=== PATIENT | female | born 1965 | race American Indian/Alaskan Native ===

== ENCOUNTER 2020-05-04 18:10 | Emergency (ER) | payer OTHER ==
[~2020-05-04] VITALS: Ht 160 cm; Wt 83.9 kg
[~2020-05-04 18:10] MED LIST: AUGMENTIN 875-1 EACH PO; MOTRIN IB200 MG PO; OMEPRAZOLE20 MG PO; ZYRTEC10 MG PO
[2020-05-04] MEDS ORDERED: VENTOLIN HFA18 GM INH (18:22)
[2020-05-04] MEDS ORDERED: SUDAFED 12-HOU120 MG PO (18:22)
--- NOTE | 2020-05-06 23:15 | PATH ---
[facility] [address] [place], [place] [address] Signed ORDERING PHYSICIAN: Therese Medina MD PATIENT NAME: VERONIKA OWEN GENDER: F : 1965 Prior History: No cases found. SPECIMEN(S): No Source Given MOLECULAR PATHOLOGY RESULTS: SARS-CoV-2 Not Detected ADDITIONAL NOTES.: The [employer]usk Fusion SARS-CoV-2 Assay is a multiplex real-time PCR (RT-PCR) in vitro diagnostic test intended for the qualitative detection of RNA from SARS-CoV-2 from individuals who meet COVID-19 clinical and/or epidemiological criteria. In general, SARS-CoV-2 RNA can be detected during the acute phase of infection. Positive results indicate the presence of SARS-CoV-2 RNA. Clinical correlation with patient history and other diagnostic information is necessary to determine patient infection status. Positive results do not rule out bacterial infection or co-infection with other viruses. Negative results do not preclude SARS-CoV-2 infection and should not be used as the sole basis for patient management decisions. Negative results must be combined with other clinical observations, patient history, and epidemiological information. The Rusk Fusion SARS-CoV-2 Assay is not yet approved or cleared by the [place] FDA. When there are no FDA-approved or cleared tests available, and other criteria are met, FDA can make tests available under an emergency access mechanism called an Emergency Use Authorization (EUA). The EUA for this test is supported by the Lay Out Technician of Health and Human Service's (HHS's) declaration that circumstances exist to justify the emergency use of in vitro diagnostics for the detection and/or diagnosis of the virus that causes COVID-19. This EUA will remain in effect for the duration of the COVID-19 declaration justifying emergency of IVDs, unless it is terminated or revoked by FDA, after which the test may no longer be used. The Rusk Fusion SARS-CoV-2 Assay is for use only under EUA PATIENT NAME: VERONIKA OWEN PATHOLOGY DATE OF : 65 REPORT #: [id number] PHYSICIAN: VERNELL PATHOLOGY [facility] REPORT IS CONFIDENTIAL AND NOT TO BE RELEASED WITHOUT AUTHORIZATION [facility] [address] [facility] [place] [address] Signed in laboratories certified under the Clinical Laboratory Improvement Amendments of 1988 (CLIA) to perform high complexity tests. [facility] is certified under CLIA to perform high complexity clinical laboratory testing. Crystal Ordonez PERFORMING LABORATORY.: Molecular testing was performed by [facility] [place] [address] (Electric Mule Operator: Keith Olivarez D.O.; CLIA#: [id number]) Diagnostician: System Interface Pathologist Electronically Signed 05/06/2020 Copies: ~ PATIENT NAME: VERONIKA OWEN PATHOLOGY DATE OF : [birth year] REPORT #: [id number] PHYSICIAN: VERNELL CUNHA PCP: [facility] REPORT IS CONFIDENTIAL AND NOT TO BE RELEASED WITHOUT AUTHORIZATION
== END 2020-05-04 19:34 | disposition home or self-care (01) ==
LOC: ED 18:10
DX: J06.9 Acute upper respiratory infection, unspecified (principal); Z20.828 Contact with and (suspected) exposure to other viral communicable diseases; G43.909 Migraine, unspecified, not intractable, without status migrainosus; J45.909 Unspecified asthma, uncomplicated; Z87.891 Personal history of nicotine dependence; Z79.899 Other long term (current) drug therapy
CPT/HCPCS: 99283; C9803

== ENCOUNTER 2021-06-18 09:19 | Emergency (ER) | payer OTHER ==
[~2021-06-18] VITALS: Ht 160 cm; Wt 83.9 kg
[~2021-06-18 09:19] MED LIST changes: +SUDAFED 12-HOU120 MG PO; +VENTOLIN HFA18 GM INH
--- OUTSIDE RECORDS SUMMARY | 2021-06-18 09:22 | XMS ---
PreManage Notification: VERONIKA OWEN Security Supervisor Display Fabrication Events No recent Security Events currently on file [facility] There are no care providers on record at this time. Ingrid has no Care Guidelines for this patient. Papa VISIT COUNT (12 MO.) 1 JUAN DIEGO [place] TOTAL 1 NOTE: Visits indicate total known visits. ED/UCC VISIT TRACKING (12 MO.) 06/18/2021 09:19 JUAN DIEGO [place] TYPE: Emergency COMPLAINT: - FLU SYMPTOMS INPATIENT VISIT TRACKING (12 MO.) No inpatient visits to display in this time frame [email or web address]
== END 2021-06-18 11:09 | disposition home or self-care (01) ==
LOC: ED 09:19
DX: J98.9 Respiratory disorder, unspecified (principal); B97.89 Other viral agents as the cause of diseases classified elsewhere; Z20.822 Contact with and (suspected) exposure to COVID-19; G43.909 Migraine, unspecified, not intractable, without status migrainosus; J45.909 Unspecified asthma, uncomplicated; K21.9 Gastro-esophageal reflux disease without esophagitis; Z87.891 Personal history of nicotine dependence; Z79.899 Other long term (current) drug therapy
CPT/HCPCS: 99283; C9803; U0003

== ENCOUNTER 2022-04-13 10:41 | Emergency (ER) | payer OTHER ==
[~2022-04-13] VITALS: Ht 160 cm; Wt 83.9 kg
[2022-04-13] MEDS ORDERED: PREDNISONE20 MG PO (14:19)
--- NOTE | 2022-04-15 20:49 | EKG ---
[facility] [address] [facility] [place] [address] Signed Sinus bradycardia Nonspecific T wave abnormality Abnormal ECG No previous ECGs available Confirmed by Blessing Tavera MD () on 04/15/2022 8:49:27 PM Electronically Signed By: BLESSING TAVERA MD 04/15/222048 PATIENT NAME: VERONIKA OWEN Electrocardiogram DATE OF : [birth year] PHYSICIAN: BLESSING TAVERA MD REPORT #: [id number] REPORT IS CONFIDENTIAL AND NOT TO BE RELEASED WITHOUT AUTHORIZATION
== END 2022-04-13 14:36 | disposition home or self-care (01) ==
LOC: ED 10:41
DX: G51.0 Bell's palsy (principal); I67.1 Cerebral aneurysm, nonruptured; Z20.822 Contact with and (suspected) exposure to COVID-19; K21.9 Gastro-esophageal reflux disease without esophagitis; J45.909 Unspecified asthma, uncomplicated; G43.909 Migraine, unspecified, not intractable, without status migrainosus; Z87.891 Personal history of nicotine dependence
CPT/HCPCS: 36415; 70450; 70496; 70498; 71045; 80048; 80053; 85025; 85610; 85730; 87502; 93005; 93010; 99284-25; C9803; J7512; Q9967; U0003

== ENCOUNTER 2024-03-19 11:47 | Day surgery (SDC) | payer BC, OTHER ==
[~2024-03-19] VITALS: Ht 160 cm; Wt 75.0 kg
[~2024-03-19 11:47] MED LIST changes: +IBLOOD GLUCOSE TEST STRIP 1 EA TEST VI PRN; +LACTATED RINGER'S 1,000 ML IV SCH; +LIDOCAINE HCL 1% 5 ML SDV INJ ONE; +MIDAZOLAM HCL 5 MG/5 ML VIAL IV PRN; +PREDNISONE20 MG PO; +fentaNYL citrate 100 MCG/2 ML VIAL IV PRN
[2024-03-19 12:10] VITALS: BP 111/68
[2024-03-19] MEDS ORDERED: FEXOFENADINE H180 MG PO (12:12)
[2024-03-19] MEDS ORDERED: MIDAZOLAM HCL 5 MG/5 ML VIAL ONE (14:01)
[2024-03-19] MEDS ORDERED: fentaNYL citrate 100 MCG/2 ML VIAL ONE (14:01)
--- NOTE | 2024-03-19 15:10 | NUR ---
03/19/24 1510 Mai Jung 1451- PT ARRIVES TO THE PACU WITH NC IN PLACE WITH 3L. RESP EVEN AND UNLABORED. PT ABDOMEN IS SOFT AND NONDISTENDED. IV IS INFUSING LR ON RIGHT WRIST. PT DOES NOT AROUSE WITH STIMULUS. MONITORS IN PLACE. PT ON LEFT SIDE. 1455- PT IS ENCOURAGED TO PASS GAS AND IS DOING SO IN SMALL AMOUNTS. PT RESPONDS TO VERBAL STIMULI AND OPENS HER EYES WHEN SPEAKING TO HER. 1506- LUCA AT BEDSIDE TALKING WITH PT. PT EASILY FALLS BACK TO SLEEP.
[2024-03-19 15:34] VITALS: BP 101/65
--- NOTE | 2024-03-21 09:55 | OR ---
[facility] [address] [place], [place] [address] Signed DATE OF OPERATION: 03/19/2024 SURGEON: Julia Segovia MD PREOPERATIVE DIAGNOSIS: History of polyps, surveillance colonoscopy. POSTOPERATIVE DIAGNOSES: 1. Sigmoid and left-sided diverticulosis. 2. Polyps x2. PROCEDURE: Total colonoscopy to cecum with cold morcellation polypectomy x2. ANESTHESIA: Intravenous sedation; fentanyl 150 mcg and Versed 4 mg. INDICATION: This 59-year-old woman is a patient of Dr. Flowers at [facility]. She underwent colonoscopy at [place] [facility] in [place], [place] in the past and was recommended to have colonoscopy last May. She is now living in this area. She is admitted at this time to undergo colonoscopy for surveillance. She understands the risk of bleeding, infection, and perforation. FINDINGS: The prep was quite excellent. Complete colonoscopy was undertaken to the cecum with full intubation of the cecum. The appendiceal orifice and ileocecal valve were normal. She had numerous diverticula of the sigmoid and left colon. There were two small polyps, one in the right colon, the other in the sigmoid, both excised completely. DESCRIPTION OF PROCEDURE: The patient was brought to the endoscopy suite and placed in the lateral decubitus position, given intravenous sedation to the point of slurred speech and nystagmus. Digital rectal examination was normal. An Olympus video colonoscope was passed in the rectum and manipulated throughout the colon noting numerous diverticula of the sigmoid and left colon. The scope was ultimately passed to the cecum. The ileocecal valve and appendiceal orifice were normal. Full intubation was accomplished. The scope was withdrawn in the distal ascending colon was a small adenomatous appearing polyp, this was excised with cold Electronically Signed By: JULIA SEGOVIA MD 03/21/24 0955 PATIENT NAME: VERONIKA OWEN OPERATIVE REPORT DATE OF : [birth year] REPORT #: [id number] PHYSICIAN: JULIA SEGOVIA MD PCP: RICHARD FLOWERS MD REPORT IS CONFIDENTIAL AND NOT TO BE RELEASED WITHOUT AUTHORIZATION [facility] [address] [place], [place] [address] Signed morcellation technique. Further withdrawal showed no sign of abnormality until the sigmoid where another similar such polyp was noted, this was excised as well. Further withdrawal showed no other abnormality. Retroflexed view of the rectum was normal. The scope was removed and the patient was taken to the recovery room in good condition. CONCLUDING DIAGNOSES: Polyps x2 and diverticulosis. PLAN: Recommend repeat colonoscopy based on current guidelines in 7 to 10 years, sooner if clinically indicated. She will return to the ongoing care of Dr. Flowers. MD CARLENE Poe/EAN /[id number] cc: Richard Flowers MD Copies: RICHARD FLOWERS MD ~ Electronically Signed By: JULIA SEGOVIA MD 03/21/24 0955 PATIENT NAME: VERONIKA OWEN OPERATIVE REPORT DATE OF : [birth year] REPORT #: [id number] PHYSICIAN: JULIA SEGOVIA MD PCP: RICHARD FLOWERS MD REPORT IS CONFIDENTIAL AND NOT TO BE RELEASED WITHOUT AUTHORIZATION
--- NOTE | 2024-03-23 14:03 | PATH ---
[facility] [address] [place], [place] [address] Signed SPECIMEN(S): A ASCENDING/RIGHT COLON POLYP SPECIMEN(S): B SIGMOID POLYP SPECIMEN SOURCE: A. ASCENDING/RIGHT COLON POLYP B. SIGMOID POLYP CLINICAL HISTORY: Surveillance colonoscopy. Post: Polyp x 2/diverticulosis FINAL PATHOLOGIC DIAGNOSIS: A. Ascending/right colon polyp: - Tubular adenoma, negative for high-grade dysplasia. B. Sigmoid polyp: - Suggestive of hyperplastic polyp, negative for dysplasia. NA MICROSCOPIC EXAMINATION: Histologic sections of all submitted blocks are examined by light microscopy. These findings, together with the gross examination, support the pathologic diagnosis. GROSS DESCRIPTION: A. The specimen, labeled and designated "Jimi, ascending colon polyp," is received in formalin and consists of two adams soft tissue fragments, ranging from 0.1 cm. Entirely submitted in (A1). B. The specimen, labeled and designated "Jimi, sigmoid colon polyp," is received in formalin and consists of four adams soft tissue fragments, ranging from 0.1 cm. Entirely submitted in (B1). JS (under the direct supervision of a pathologist) The Gross Description was prepared using a voice recognition system. The report was reviewed for accuracy; however, sound-alike word errors, addition and/or deletions may occur. If there is any question about this report, please contact Client Services. ADDITIONAL NOTES: Immunohistochemical and/or in situ hybridization studies if performed in this case included appropriate positive controls that reacted as expected. This test was developed and its performance characteristics determined by [facility]. It has not been cleared or approved by the U.S. Food and Drug Administration. The FDA has determined that PATIENT NAME: VERONIKA OWEN PATHOLOGY DATE OF : [birth year] REPORT #: [id number] PHYSICIAN: VERNELL CUNHA PCP: RICHARD CHUNG MD REPORT IS CONFIDENTIAL AND NOT TO BE RELEASED WITHOUT AUTHORIZATION [facility] [address] [place] [id number] Signed such clearance or approval is not necessary. This test is used for clinical purposes. It should not be regarded as investigational or for research. [facility] is certified under the Clinical Laboratory Improvement Amendments of 1988 (CLIA) as qualified to perform high complexity clinical laboratory testing. PERFORMING LABORATORY: Technical component was performed by [facility], [address] [place] [address] (CLIA# [id number]). Professional interpretation was performed by [facility], [address] [place] [address] (CLIA#: [id number]). Diagnostician: Fei Alvarado MD Pathologist Electronically Signed 03/23/2024 Copies: ~ PATIENT NAME: VERONIKA OWEN PATHOLOGY DATE OF : [birth year] REPORT #: [id number] PHYSICIAN: [facility] PCP: RICHARD CHUNG MD REPORT IS CONFIDENTIAL AND NOT TO BE RELEASED WITHOUT AUTHORIZATION
== END 2024-03-19 15:45 | disposition home or self-care (01) ==
LOC: OPS 11:47 → DS 11:51 → OPS 14:00
PROVIDERS: ATTEND Surgery
PROC: 0DBE8ZX Excision of Large Intestine, Via Natural or Artificial Opening Endoscopic, Diagnostic (ICD-10-PCS; principal; 2024-03-19 13:00)
DX: Z12.11 Encounter for screening for malignant neoplasm of colon (principal); D12.2 Benign neoplasm of ascending colon; K63.5 Polyp of colon; K57.30 Diverticulosis of large intestine without perforation or abscess without bleeding; Z86.010 Personal history of colon polyps
CPT/HCPCS: 99153; G0500; J2250; J3010; J7121

== ENCOUNTER 2024-04-15 15:58 | Emergency (ER) | payer BC, OTHER ==
[~2024-04-15] VITALS: Ht 160 cm; Wt 73.4 kg
[~2024-04-15 15:58] MED LIST changes: +FEXOFENADINE H180 MG PO; -IBLOOD GLUCOSE TEST STRIP 1 EA TEST VI PRN; -LACTATED RINGER'S 1,000 ML IV SCH; -LIDOCAINE HCL 1% 5 ML SDV INJ ONE; -MIDAZOLAM HCL 5 MG/5 ML VIAL IV PRN; -fentaNYL citrate 100 MCG/2 ML VIAL IV PRN
[2024-04-15] MEDS ORDERED: LOTEPREDNOL ETA10 ML OP (19:02)
[2024-04-15] MEDS ORDERED: ALLERGY RELIEF5 M1 PO (19:02)
[2024-04-15 20:40] VITALS: BP 117/89
== END 2024-04-15 20:40 | disposition home or self-care (01) ==
LOC: ED 15:58
DX: T17.928A Food in respiratory tract, part unspecified causing other injury, initial encounter (principal); K21.9 Gastro-esophageal reflux disease without esophagitis; Z79.899 Other long term (current) drug therapy; G43.909 Migraine, unspecified, not intractable, without status migrainosus; J45.909 Unspecified asthma, uncomplicated; Z87.891 Personal history of nicotine dependence; W44.F3XA Food entering into or through a natural orifice, initial encounter
CPT/HCPCS: 71045; 99284-25